=== PATIENT | male | born 1960 | race Caucasian/White ===

== ENCOUNTER 2020-03-02 07:03 | Outpatient (CLI) | payer SELFPAY ==
--- NOTE | 2020-03-02 07:12 | MR_ITS ---
WS: [id number] MRI RIGHT KNEE NONCONTRAST TECHNIQUE: Axial PD, coronal PD fat sat, coronal PD, sagittal PD, and sagittal PD fat-sat images obta ined. CLINICAL INFORMATION: RT KNEE PAIN, SYNOVIAL CYST OF POPLITEAL SPACE (LIRIANO) COMPARISON: None. FINDINGS: Distal quadriceps and patella tendons are intact. Small suprapatellar effusion. Hypertrophic patella. Lobulated popliteal cyst measuring 2.5 x 4.3 x 8.1 cm AP by transverse by craniocaudal. A few agribusiness internship al septations. Complex tear involving the posterior horn medial meniscus extending to the articular surface. Small r adial tear. Blunting of the posterior horn. Chronic thinning of the medial meniscus. Lateral meniscus is intact. Hypertrophic patella. Moderate chondromalacia patella. Tiny amount of subchondral edema. Moderate chr onic joint space narrowing involving the medial and lateral joint compartments. Medial and lateral co llateral ligaments are intact. Small amount of prepatellar and infrapatellar soft tissue edema. MR/MR knee RT wo con* [id number] IMPRESSION: 1. Anterior and posterior cruciate ligaments are intact. 2. Lobulated popliteal cyst measuring 2.5 x 4.3 x 8.1 cm with a few septations . 3. Small suprapatellar effusion. 4. Complex tear involving the posterior horn medial meniscus extending to the articular surface. Associated radial tear. 5. Moderate chondromalacia patella with a small amount of subchondral edema.
== END 2020-03-02 07:04 | disposition home or self-care (01) ==
LOC: RADSHAW 07:08
PROVIDERS: PCP Nurse Practitioner; Visit Provider Nurse Practitioner
DX: M71.21 Synovial cyst of popliteal space [Baker], right knee (principal); M25.461 Effusion, right knee; S83.241A Other tear of medial meniscus, current injury, right knee, initial encounter; M22.41 Chondromalacia patellae, right knee; R60.0 Localized edema
CPT/HCPCS: 73721

== ENCOUNTER → 2020-03-11 11:20 | Outpatient (BNVA) | payer OTHER, SELFPAY | PROVIDERS: PCP Nurse Practitioner; Referring Provider Nurse Practitioner; Visit Provider Orthopaedic Surgery | DX: M25.561 Pain in right knee (principal) | CPT/HCPCS: 73560; 73565 ==

== ENCOUNTER 2020-10-13 11:20 | Outpatient (CLI) | payer OTHER, SELFPAY ==
--- NOTE | 2020-10-13 11:35 | XR_ITS ---
WS: [id number] Exam: XR chest 2V* [id number] Date/Time of Exam: 10/13/2020 11:39 AM Reason For Exam: CHEST PAIN No priors. The lungs are fully expanded and clear. Normal cardiomediastinal structures and bony elements. Eventr ation of the right diaphragm. XR/XR chest 2V* [id number] IMPRESSION: 1. No acute cardiopulmonary finding.
== END 2020-10-13 11:21 | disposition home or self-care (01) ==
PROVIDERS: PCP Nurse Practitioner; Visit Provider Nurse Practitioner
DX: R07.9 Chest pain, unspecified (principal)
CPT/HCPCS: 71046